=== PATIENT | male | born 1960 | race Asian ===

== ENCOUNTER 2020-05-06 22:11 | Emergency (ER) | payer OTHER ==
[~2020-05-06] VITALS: Ht 182.9 cm; Wt 97.5 kg
[2020-05-06 22:47] VITALS: Ht 182.9 cm; Wt 97.5 kg
[2020-05-07 01:41] LABS: BASOPHIL % 0.3 % (0-2); PLATELET COUNT 226 x10^3mcL (130-400); RED CELL DISTRIBUTION WIDTH 11.9 % (11.5-14.5)
[2020-05-07 01:53] LABS: CALCIUM 8.6 mg/dL (8.5-10.1); CREATININE SERUM 1.6 mg/dL (0.7-1.3); TOTAL PROTEIN, SERUM 7.5 g/dL (6.4-8.2)
[2020-05-07 01:56] LABS: ALBUMIN 4.1 g/dL (3.4-5.0)
[2020-05-07 01:58] LABS: BILIRUBIN TOTAL 0.53 mg/dL (0.20-1.00); POTASSIUM SERUM 4.2 mmol/L (3.5-5.1)
[2020-05-07 04:00] VITALS: BP 124/72
== END 2020-05-07 04:00 | disposition home or self-care (01) ==
LOC: ED 22:11
PROVIDERS: Emergency Medicine
DX: N20.0 Calculus of kidney (principal)
CPT/HCPCS: J1885; J2270; J7030